=== PATIENT | female | born 2000 | race Caucasian/White ===

== ENCOUNTER 2018-06-07 18:47 | Emergency (ER) | payer SELFPAY ==
[~2018-06-07] VITALS: Ht 165.1 cm; Wt 68.2 kg
[2018-06-07] MEDS ORDERED: LIDOCAINE 5% TRANSDERMAL PATCH TD ONE (20:45)
[2018-06-07] MEDS ORDERED: METHOCARBAMOL 500 MG TABLET PO ONE (20:45)
[2018-06-07] MEDS ORDERED: IBUPROFEN 600 MG TABLET PO ONE (20:45)
[2018-06-07 22:55] VITALS: BP 134/73
== END 2018-06-07 23:08 | disposition home or self-care (01) ==
LOC: EMS 18:48
DX: M54.5 Low back pain (principal); M25.551 Pain in right hip; M25.511 Pain in right shoulder; R03.0 Elevated blood-pressure reading, without diagnosis of hypertension; F12.90 Cannabis use, unspecified, uncomplicated; V49.59XA Passenger injured in collision with other motor vehicles in traffic accident, initial encounter; Y93.89 Activity, other specified; Y92.488 Other paved roadways as the place of occurrence of the external cause; Y99.8 Other external cause status
CPT/HCPCS: 72100; 73502